=== PATIENT | female | born 1950 | race Caucasian/White ===

== ENCOUNTER 2020-03-03 13:28 | Outpatient (REF) | payer MEDICARE, SELFPAY ==
--- NOTE | 2020-03-06 10:05 | MHC.AU.P13 ---
Adult Audiological Evaluation Date of Visit: 03/03/20 Reason for Appointment: Hearing evaluation to monitor hearing loss. Patient notes that she was diagnosed with a mild hearing loss in the past. Does patient feel they have a hearing loss?: Yes If Yes, Which Ear?: Both Ears When Was Hearing Difficulty First Noticed?: A few years ago Has hearing been tested previously?: Yes Previous Hearing Test Results: [facility], several years ago Hearing Handicap Inventory: HHIE SCORE: 20 Based on HHIE score, patient has: Mild to moderate perceived hearing handicap Ear History: Family History of Hearing Loss?: Yes: Father- age related; Sister- sudden unilateral HL Medical History: Medical History: High Blood Pressure Allergies: Penicillin Medication List: Metformin, levothyroxine, hydrochlorothiazide, lisinopril, sertraline, aspirin, vitamin D, calcium Otoscopy: Right Ear: Unremarkable Left Ear: Unremarkable Tympanometry: Right Ear: Reduced Middle Ear Compliance (Type As) Left Ear: Normal Middle Ear System (Type A) Hearing Evaluation: Transducer(s) Used: Insert Earphones, Bone Conduction Method: Conventional Audiometry Stimuli Used: Pure Tones Right Ear: Description of Hearing: Normal hearing from 250-2000 Hz, sloping to a moderate sensorineural hearing loss from 3293-1668 Hz. Left Ear: Description of Hearing: Normal hearing from 250-1000 Hz, sloping to a mild sensorineural hearing loss at 2000 Hz and moderate sensorineural hearing loss from 8385-1982 Hz. Speech Recognition Threshold (SRT): Method Used: Monitored Live Voice Stimuli Used: Spondee Words Right Ear: 5 dBHL Left Ear: 15 dBHL Word Discrimination: Method: Recorded Lists Word Lists Used: NU-6 Right Ear: 100% at 60 dBHL Left Ear: 100% at 60 dBHL Recommendations: Recommendations: Audiological re-evaluation in one year. Patient does not feel they are ready for amplification at this time. Recommendations (Other): Patient is considered a borderline candidate for amplification. She deferred hearing aids at this time. Diagnosis: Primary Diagnosis: H90.3 Bilateral Sensorineural Hearing Loss Services Performed: Services Performed: Comprehensive Audiological Evaluation (CPT 05637) Tympanometry (CPT 33541) Signature: Provider: Heather Melo, [facility]
== END 2020-03-03 13:29 | disposition home or self-care (01) ==
LOC: HO.SH 13:28
PROVIDERS: Visit Provider Family Medicine
DX: H90.3 Sensorineural hearing loss, bilateral (principal)
CPT/HCPCS: 92557; 92567

== ENCOUNTER 2022-02-22 08:01 | Day surgery (SDC) | payer MEDICARE, SELFPAY ==
[2022-02-19 10:48] VITALS: BMI 32.1
--- NOTE | 2022-02-21 11:01 | HO.ANESPROP2 ---
Documented by User: Yocasta Matthews NP 02/21/22 11:02 HPI - Anesthesia Eval Consult details Narrative: 71yo F for Colonoscopy PMFSH Past Medical History Medical History Anxiety Diabetes Elevated cholesterol HTN (hypertension) Hypothyroid Surgical History Surgical History H/O colonoscopy Hx of tonsillectomy S/P removal of thyroid nodule Social History Social History Patient Tobacco Use Status: Former Tobacco user Are you DNR?: No Advance Directives: No Advance Directives Information Provided: Yes Nutrition Risks: No Nutritional Risk Meds Allergies Allergy/AdvReac Type Severity Reaction Status Date / Time Penicillins Allergy Unknown Verified 02/22/22 10:36 Home Medications Medication Instructions Recorded Confirmed Last Taken Type aspirin 81 mg tablet,delayed 81 mg PO DAILY 05/30/20 02/19/22 02/19/22 History release atorvastatin 10 mg tablet 10 mg PO BEDTIME 05/30/20 02/19/22 Unknown History calcium carbonate 600 mg calcium 600 mg PO BID 05/30/20 02/19/22 Unknown History (1,500 mg) tablet (Calcium) cholecalciferol (vitamin D3) 50 50 mcg PO DAILY 05/30/20 02/19/22 Unknown History mcg (2,000 unit) capsule (Vitamin D3) hydrochlorothiazide 25 mg tablet 25 mg PO DAILY 05/30/20 02/19/22 Unknown History levothyroxine 88 mcg tablet 88 mcg PO DAILY 05/30/20 02/19/22 02/22/22 History lisinopril 10 mg tablet 10 mg PO DAILY 05/30/20 02/19/22 02/22/22 History metformin 500 mg tablet 500 mg PO TID 05/30/20 02/19/22 Unknown History sertraline 50 mg tablet 100 mg PO DAILY 05/30/20 02/19/22 02/22/22 History glipizide 5 mg tablet, extended 5 mg PO DAILY 02/19/22 02/19/22 Unknown History release 24 hr Exam Exam Date and Time: February 21, 2022 1101 Height,Weight and Vital Signs: Height 5 ft 2 in Weight 79.832 kg Assessment and Plan Assessment Anesthesia Assessment: Chart Reviewed Documented by User: Markus Parker MD 02/22/22 15:54 [facility] Past Medical History Medical History Anxiety Diabetes Elevated cholesterol HTN (hypertension) Hypothyroid Functional capacity: independent ambulation Family History Family history of problems with anesthesia: No Surgical History Surgical History H/O colonoscopy Hx of tonsillectomy S/P removal of thyroid nodule History of Problems with Anesthesia: No Social History Social History Patient Tobacco Use Status: Former Tobacco user Are you DNR?: No Advance Directives: No Advance Directives Information Provided: Yes Nutrition Risks: No Nutritional Risk Meds Allergies Allergy/AdvReac Type Severity Reaction Status Date / Time Penicillins Allergy Unknown Verified 02/22/22 10:36 Home Medications Medication Instructions Recorded Confirmed Last Taken Type aspirin 81 mg tablet,delayed 81 mg PO DAILY 05/30/20 02/19/22 02/19/22 History release atorvastatin 10 mg tablet 10 mg PO BEDTIME 05/30/20 02/19/22 Unknown History calcium carbonate 600 mg calcium 600 mg PO BID 05/30/20 02/19/22 Unknown History (1,500 mg) tablet (Calcium) cholecalciferol (vitamin D3) 50 50 mcg PO DAILY 05/30/20 02/19/22 Unknown History mcg (2,000 unit) capsule (Vitamin D3) hydrochlorothiazide 25 mg tablet 25 mg PO DAILY 05/30/20 02/19/22 Unknown History levothyroxine 88 mcg tablet 88 mcg PO DAILY 05/30/20 02/19/22 02/22/22 History lisinopril 10 mg tablet 10 mg PO DAILY 05/30/20 02/19/22 02/22/22 History metformin 500 mg tablet 500 mg PO TID 05/30/20 02/19/22 Unknown History sertraline 50 mg tablet 100 mg PO DAILY 05/30/20 02/19/22 02/22/22 History glipizide 5 mg tablet, extended 5 mg PO DAILY 02/19/22 02/19/22 Unknown History release 24 hr Exam Airway Mallampati Class: III TM Dist: >3cm Neck ROM: Full Loose/Missing/Broken Teeth: Yes (Fillings , poor dentition ) Heart: S1,S2 Lungs: b/l breath sounds Assessment and Plan Assessment Anesthesia Assessment: Anesthesia Plan Discussed Final Anesthetic Review Family History of Problems with Anesthesia: No History of Problems with Anesthesia: No NPO: Yes ASA Class: II Final Preanesthetic Review: Meds/Allgs Chart Reviewed, Consent Obtained/Reviewed and Anes Risks/Benef Reviewed Patient Risk: Intermediate Procedure Risk: Intermediate Anesthetic Plan Anesthetic Plan: MAC: Disposition: Standard PACU
--- NOTE | 2022-02-22 10:07 | MHC.SHP ---
Pre-Procedural Eval Section A Date of Service: 02/22/22 Section B Chief Complaint: Family history of malignant neopla,screening Details of Present Illness: screening Relevant Family History (Specify if Yes): Yes Relevant Social History: None Present Medications: see Short Stay Collaborative assessment Medical History: No relevant PMH History of Previous Operations: No relevant previous surgery Allergies: Allergies Allergy/AdvReac Type Severity Reaction Status Date / Time Penicillins Allergy Unknown Verified 05/30/20 16:34 Review of Systems Sugical H&P ROS: Negative: Constitution, Cardiovascular, Respiratory, Neurological, Psychiatric, Hem-Onc, Allergic/Immunologic, Gastrointestinal, Genitourinary, Musculoskeletal, Integumentary, Endocrine and Eyes/Ears/Nose/Throat Exam Surgical H&P Exam: Normal: HEENT, Normal: Heart, Normal: Lungs, Normal: Extremities, Normal: Abdomen, Normal: Skin and Normal: Neurological Plan Diagnosis/Plan: Unchanged I have reviewed the history and physical and performed a pertinent physical examination on my patient. No changes have occurred unless specified.
[2022-02-22] MEDS: Lactated Ringers 1,000 ML 100 ML IVCONT (10:25)
[2022-02-22 10:36] VITALS: BP 101/52; PULSE 88; RESP 18; TEMP 36.6; O2SAT 97
[2022-02-22 10:42] LABS: Glucose, Whole Blood 131 mg/dL (60-115)
--- NOTE | 2022-02-22 11:31 | P.BOP_ITS ---
Brief Operative Note Date of Service: 02/22/22 Pre-op diagnosis: screening Post-op diagnosis: same Surgeon: Manolo Quintana Anesthesia: MAC Was an Charge Master Coordinator used for this Procedure?: No Estimated blood loss (mL): 0 Pathology: other Condition: stable Disposition: PACU
[2022-02-22 11:41] VITALS: BP 93/35; PULSE 77; RESP 16; TEMP 36.4; O2SAT 99
[2022-02-22 11:56] VITALS: BP 112/58; PULSE 70; RESP 16; TEMP 36.4; O2SAT 99
--- NOTE | 2022-02-23 01:20 | OP_ITS ---
SURGEON: Manolo Qiuntana MD INDICATIONS: Colon cancer screening and prior history of colon polyps. PREOPERATIVE DIAGNOSIS: POSTOPERATIVE DIAGNOSIS: PROCEDURE PERFORMED: Colonoscopy to the terminal ileum with snare polypectomy. ESTIMATED BLOOD LOSS: COMPLICATIONS: ANESTHESIA: Monitored anesthesia care. ASSISTANTS: SPECIMENS: DESCRIPTION OF PROCEDURE: The procedure was performed on 02/22/2022. A history and physical were performed. The risks and benefits of the procedure were explained to the patient. Informed consent was obtained. The patient was placed in the left lateral decubitus position. A digital rectal exam was performed and was found to be normal. The Olympus pediatric video colonoscope was introduced into the rectum and advanced to the cecum without difficulty. The cecum was identified by transillumination, palpation, and identification of ileocecal valve examination was performed. The scope was removed. She tolerated the procedure well and was taken to the recovery area in stable condition. FINDINGS: The terminal ileum was normal. The visualized colonic mucosa was normal. The quality of the prep was good. Two polyps were identified and removed with a snare. Both measured less than 10 mm. The first was located in the right colon. The 2nd was located at 20 cm. Retroflexed examination showed some hypertrophic anal papillae and small internal hemorrhoids. IMPRESSION: Colon polyps. RECOMMENDATION: Follow up the biopsy results. MD CLARITA Ornelas/SHY / [id number]
== END 2022-02-22 12:24 | disposition home or self-care (01) ==
PROVIDERS: PCP Family Medicine; Visit Provider Internal Medicine Gastroenterology
PROC: 0DJD8ZZ Inspection of Lower Intestinal Tract, Via Natural or Artificial Opening Endoscopic (ICD-10-PCS; CPT 45378; principal; 2022-02-22 10:00)
DX: Z12.11 Encounter for screening for malignant neoplasm of colon (principal); Z86.010 Personal history of colon polyps; Z80.0 Family history of malignant neoplasm of digestive organs; K51.40 Inflammatory polyps of colon without complications; K63.5 Polyp of colon; K62.89 Other specified diseases of anus and rectum; K64.8 Other hemorrhoids; I10 Essential (primary) hypertension; E78.5 Hyperlipidemia, unspecified; E11.9 Type 2 diabetes mellitus without complications; E03.9 Hypothyroidism, unspecified; F41.1 Generalized anxiety disorder; Z79.84 Long term (current) use of oral hypoglycemic drugs; Z79.899 Other long term (current) drug therapy; Z79.82 Long term (current) use of aspirin
CPT/HCPCS: 45385; 82947; 88305; J2370